=== PATIENT | male | born 1935 | race Caucasian/White ===

== ENCOUNTER 2017-08-18 10:47 | Inpatient (IN) | payer MEDICARE ==
[~2017-08-18] VITALS: Ht 175.3 cm; Wt 72.1 kg
[2017-08-18 11:20] LABS: BASOPHILS % (AUTO) 0.2 % (0.0-5.0); EOSINOPHILS % (AUTO) 0.5 % (0.0-8.0); HEMATOCRIT 41.7 % (42-54); LYMPHOCYTES % (AUTO) 4.3 % (21.0-51.0); MEAN CORPUSCULAR HEMOGLOBIN 31.5 pg (27.0-33.0); MEAN CORPUSCULAR HGB CONC 34.5 g/dL (32.0-36.0); MEAN CORPUSCULAR VOLUME 91.3 fL (79-99); MONOCYTES % (AUTO) 7.3 % (3.0-13.0); NEUTROPHILS % (AUTO) 87.7 % (40.0-77.0); PLATELET COUNT (AUTO) 283 K/uL (130-400); RED BLOOD CELL COUNT(AUTO) 4.57 MIL/uL (4.50-6.20); RED CELL DISTRIBUTION WIDTH 13.4 % (11.0-15.5); WHITE BLOOD COUNT (AUTO) 12.5 K/uL (4.8-10.8)
[2017-08-18 11:36] LABS: INR 1.03 (0.85-1.15); PARTIAL THROMBOPLASTIN TIME 33.7 SEC (26.3-35.5); PROTHROMBIN TIME 10.8 SEC (9.6-11.6)
[2017-08-18 11:50] LABS: ALBUMIN 2.5 g/dL (3.5-5.0); CREATINE KINASE MB 3.9 ng/mL (0.5-3.6); TOTAL PROTEIN, SERUM 7.7 g/dL (6.0-8.3)
[2017-08-18 12:49] LABS: CREATININE 1.8 mg/dL (0.5-1.5)
[2017-08-18] MEDS ORDERED: AZITHROMYCIN 250 MG TABLET PO ONE (15:00)
[2017-08-18] MEDS ORDERED: CEFTRIAXONE SODIUM 1 GM ONE (15:00)
[2017-08-18] MEDS ORDERED: ACETAMINOPHEN 325 MG TAB PO PRN (16:30)
[2017-08-18] MEDS ORDERED: ZOSYN 3.375GM+NS 50ML 50 ML IV ONE (17:37)
[2017-08-18] MEDS: IPRATROPIUM/ALBUTEROL SULFATE 3 ML SOLUTION IH SCH (19:14)
[2017-08-18 22:00] VITALS: BP 114/54
[2017-08-19] VITALS: BP 102/64
[2017-08-19] MEDS: IPRATROPIUM/ALBUTEROL SULFATE 3 ML SOLUTION IH SCH ×5 (00:31→23:43)
[2017-08-19 04:00] VITALS: BP 98/58
[2017-08-19 08:00] VITALS: BP 113/56
[2017-08-19] MEDS: CEFTRIAXONE SODIUM 1 GM IVP SCH (08:52)
[2017-08-19] MEDS: AZITHROMYCIN 500MG+NS 250ML 250 ML IV SCH (08:53)
[2017-08-19 11:00] VITALS: BP 112/51
[2017-08-19 16:00] VITALS: BP 118/61
[2017-08-19] MEDS ORDERED: AMLO5TAB2 PO (16:18)
[2017-08-19] MEDS ORDERED: LOVA40TA2 PO (16:18)
[2017-08-19 20:00] VITALS: BP 126/60
[2017-08-20] VITALS: BP 106/60
[2017-08-20 04:00] VITALS: BP 102/56
[2017-08-20 05:37] LABS: BASOPHILS % (AUTO) 0.7 % (0.0-5.0); EOSINOPHILS % (AUTO) 0.9 % (0.0-8.0); HEMATOCRIT 33.2 % (42-54); LYMPHOCYTES % (AUTO) 6.4 % (21.0-51.0); MEAN CORPUSCULAR HEMOGLOBIN 31.9 pg (27.0-33.0); MEAN CORPUSCULAR HGB CONC 34.8 g/dL (32.0-36.0); MEAN CORPUSCULAR VOLUME 91.6 fL (79-99); MONOCYTES % (AUTO) 9.5 % (3.0-13.0); NEUTROPHILS % (AUTO) 82.5 % (40.0-77.0); PLATELET COUNT (AUTO) 301 K/uL (130-400); RED BLOOD CELL COUNT(AUTO) 3.63 MIL/uL (4.50-6.20); RED CELL DISTRIBUTION WIDTH 13.3 % (11.0-15.5); WHITE BLOOD COUNT (AUTO) 8.5 K/uL (4.8-10.8)
[2017-08-20 05:44] LABS: CREATININE 1.4 mg/dL (0.5-1.5); POTASSIUM 3.8 mmol/L (3.5-5.1)
[2017-08-20] MEDS: IPRATROPIUM/ALBUTEROL SULFATE 3 ML SOLUTION IH SCH ×2 (06:42→12:16)
[2017-08-20 08:00] VITALS: BP 108/57
[2017-08-20] MEDS ORDERED: AMLODIPINE BESYLATE 5 MG TAB PO SCH (09:00)
[2017-08-20] MEDS: AZITHROMYCIN 500MG+NS 250ML 250 ML IV SCH (12:55)
[2017-08-20] MEDS: CEFTRIAXONE SODIUM 1 GM IVP SCH (12:56)
[2017-08-20] MEDS ORDERED: ATORVASTATIN CALCIUM 20 MG TABLET PO SCH (17:00)
== END 2017-08-20 17:55 | disposition home or self-care (01) | DRG 194 ==
LOC: EDH 10:47 → EDHIP 15:40 → 3BH 21:21
PROVIDERS: ADMIT Family Medicine; ATTEND Family Medicine
DX: J18.9 Pneumonia, unspecified organism (principal); N17.9 Acute kidney failure, unspecified; R09.02 Hypoxemia; I10 Essential (primary) hypertension; E78.5 Hyperlipidemia, unspecified; R00.0 Tachycardia, unspecified
CPT/HCPCS: 36415; 71045; 71250; 80048; 80053; 82550; 82553; 83874; 84484; 85025; 85610; 85730; 93005; 94640; 94664; A4218; J0456; J0696; J2543

== ENCOUNTER 2022-04-10 07:57 | Observation (INO) | payer OTHER, MEDICARE ==
[~2022-04-10] VITALS: Ht 172.7 cm; Wt 57.6 kg
[~2022-04-10 07:57] MED LIST: AMLO-257 PO; LOVA40TA2 PO
[2022-04-10 08:43] LABS: BASOPHILS % (AUTO) 1.1 % (0.0-5.0); EOSINOPHILS % (AUTO) 2.2 % (0.0-8.0); HEMATOCRIT 41.4 % (42-54); LYMPHOCYTES % (AUTO) 21.1 % (21.0-51.0); MEAN CORPUSCULAR HEMOGLOBIN 30.8 pg (27.0-33.0); MEAN CORPUSCULAR HGB CONC 32.9 g/dL (32.0-36.0); MEAN CORPUSCULAR VOLUME 93.9 fL (79-99); MONOCYTES % (AUTO) 8.3 % (3.0-13.0); NEUTROPHILS % (AUTO) 67.3 % (40.0-77.0); PLATELET COUNT (AUTO) 242 K/uL (130-400); RED BLOOD CELL COUNT(AUTO) 4.41 MIL/uL (4.50-6.20); RED CELL DISTRIBUTION WIDTH 12.8 % (11.0-15.5); WHITE BLOOD COUNT (AUTO) 3.6 K/uL (4.8-10.8)
[2022-04-10 08:54] LABS: CREATININE 1.1 mg/dL (0.5-1.5); POTASSIUM 4.2 mmol/L (3.5-5.1)
[2022-04-10 08:58] LABS: ALBUMIN 3.3 g/dL (3.5-5.0); TOTAL PROTEIN, SERUM 6.9 g/dL (6.0-8.3)
[2022-04-10 10:20] LABS: APPEARANCE,URINE CLEAR (CLEAR); BILIRUBIN,URINE NEGATIVE (NEGATIVE); COLOR,URINE LIGHT-YELLOW (YELLOW); GLUCOSE, URINE (UA) NEGATIVE (NEGATIVE); KETONES,URINE NEGATIVE (NEGATIVE); LEUKOCYTE ESTERASE ,URINE NEGATIVE Leu/uL (NEGATIVE); NITRATE,URINE NEGATIVE (NEGATIVE); OCCULT BLOOD,URINE NEGATIVE (NEGATIVE); PROTEIN,URINE NEGATIVE (NEGATIVE); UROBILINOGEN,URINE 0.2 mg/dL (0.2-1.0)
[2022-04-10 11:00] LABS: MUCUS,URINE RARE LPF (None Seen); RBC,URINE 0-1 /HPF (0-1); SQUAMOUS EPITHELIAL CELL,UR RARE /HPF (0-2)
[2022-04-10] MEDS ORDERED: 0.9% NACL 500ML IV.SOLN 500 ML IV SCH (11:00)
[2022-04-10] MEDS ORDERED: MAGNESIUM 2GM PREMIX 50ML 50 ML IV PRN (11:30)
[2022-04-10] MEDS ORDERED: MORPHINE 4 MG SYG IV PRN (11:30)
[2022-04-10] MEDS ORDERED: GUAIFENESIN-DM 200/20 MG 10 ML PO PRN (11:30)
[2022-04-10] MEDS ORDERED: MAG/ALUM/SIMETH 30 ML UDCUP PO PRN (11:30)
[2022-04-10] MEDS ORDERED: AMIODARONE 900MG VIAL 360 MG in DEXTROSE 5%-WATER 200 ML IV SCH (11:30)
[2022-04-10] MEDS ORDERED: ONDANSETRON 4MG INJ IV PRN (11:30)
[2022-04-10] MEDS ORDERED: LACTULOSE 20 GM/30 ML UDCUP PO PRN (11:30)
[2022-04-10] MEDS ORDERED: POTASSIUM CHLORIDE 20MEQ/100ML 100 ML IV PRN (11:30)
[2022-04-10] MEDS ORDERED: ACETAMINOPHEN 325 MG TAB PO PRN ×2 (11:30)
[2022-04-10] MEDS ORDERED: DIPHENHYDRAMINE HCL 25 MG CAPSULE PO PRN (11:30)
[2022-04-10] MEDS ORDERED: METOPROLOL TARTRATE 1 MG/ML 5ML VIAL IV ONE ×2 (11:30→12:00)
[2022-04-10] MEDS ORDERED: POTASSIUM CHLORIDE 10% ELIXIR 20 MEQ/15 ML UDCUP PO PRN (11:30)
[2022-04-10] MEDS ORDERED: AMIODARONE 900MG VIAL 540 MG in DEXTROSE 5%-WATER 300 ML IV SCH ×2 (11:30→19:30)
[2022-04-10] MEDS ORDERED: DiphenhydrAMINE HCL 50 MG/ML VIAL IV PRN (11:30)
[2022-04-10] MEDS ORDERED: AMIODARONE 900MG VIAL 150 MG in DEXTROSE 5%-WATER 100 ML IV PRN (11:30)
[2022-04-10] MEDS ORDERED: NITROGLYCERIN 0.4 MG SL TAB SL PRN (11:30)
[2022-04-10] MEDS ORDERED: LIDOCAINE HCL-MPF 1% 2ML VIAL IV PRN (11:30)
[2022-04-10] MEDS ORDERED: HYDROCODONE/ACETAMINOPHEN 5/325 MG TAB PO PRN (11:30)
[2022-04-10] MEDS ORDERED: HYDROMORPHONE 1 MG INJ IV PRN (11:30)
[2022-04-10] MEDS ORDERED: LACTATED RINGERS 1000ML IV SCH (14:15)
[2022-04-10 15:40] VITALS: BP_SYST 106; BP_SYST 110; BP_SYST 116; BP_DIAS 53; BP_DIAS 59; BP_DIAS 71
[2022-04-10 19:30] VITALS: BP_SYST 111; BP_SYST 114; BP_DIAS 60; BP_DIAS 65
[2022-04-10 19:32] VITALS: BP 114/65
[2022-04-10 19:34] VITALS: BP 110/60
[2022-04-10] MEDS: FAMOTIDINE 20MG TAB PO SCH (20:39)
[2022-04-10] MEDS: APIXABAN 2.5 MG TABLET PO SCH (20:39)
[2022-04-10] MEDS: FAMOTIDINE 20MG VIAL IV SCH (21:00)
[2022-04-11] VITALS: BP_SYST 107; BP_SYST 108; BP_SYST 112; BP_DIAS 56; BP_DIAS 59; BP_DIAS 66
[2022-04-11 04:00] VITALS: BP_SYST 113; BP_SYST 114; BP_SYST 95; BP_DIAS 41; BP_DIAS 53; BP_DIAS 58
[2022-04-11 04:00] LABS: BASOPHILS % (AUTO) 0.9 % (0.0-5.0); EOSINOPHILS % (AUTO) 2.1 % (0.0-8.0); HEMATOCRIT 35.4 % (42-54); LYMPHOCYTES % (AUTO) 17.5 % (21.0-51.0); MEAN CORPUSCULAR HEMOGLOBIN 31.1 pg (27.0-33.0); MEAN CORPUSCULAR HGB CONC 33.6 g/dL (32.0-36.0); MEAN CORPUSCULAR VOLUME 92.4 fL (79-99); MONOCYTES % (AUTO) 11.3 % (3.0-13.0); PLATELET COUNT (AUTO) 231 K/uL (130-400); RED BLOOD CELL COUNT(AUTO) 3.83 MIL/uL (4.50-6.20); RED CELL DISTRIBUTION WIDTH 12.9 % (11.0-15.5); WHITE BLOOD COUNT (AUTO) 5.3 K/uL (4.8-10.8)
[2022-04-11 04:09] LABS: CREATININE 1.2 mg/dL (0.5-1.5); MAGNESIUM 1.7 mg/dL (1.80-2.40); PHOSPHORUS 3.1 mg/dL (2.5-4.9); POTASSIUM 3.7 mmol/L (3.5-5.1)
[2022-04-11] MEDS: KCL 20 MEQ ERTAB PO PRN ×2 (04:56→09:05)
[2022-04-11 06:45] VITALS: BP 103/59
[2022-04-11 06:46] VITALS: BP 101/57
[2022-04-11 06:47] VITALS: BP 112/62
[2022-04-11] MEDS: FAMOTIDINE 20MG VIAL IV SCH (07:55)
[2022-04-11] MEDS ORDERED: ENOXAPARIN SODIUM 40 MG/0.4 ML SYRINGE SQ SCH (09:00)
[2022-04-11] MEDS: FAMOTIDINE 20MG TAB PO SCH (09:04)
[2022-04-11] MEDS: APIXABAN 2.5 MG TABLET PO SCH (09:04)
[2022-04-11] MEDS ORDERED: BETH25 PO (10:29)
[2022-04-11] MEDS ORDERED: DONE10TA43 PO (10:29)
[2022-04-11] MEDS ORDERED: LOSA50TA64 PO (10:29)
[2022-04-11] MEDS ORDERED: APIX2.5T PO (11:04)
== END 2022-04-11 12:14 | disposition home or self-care (01) ==
LOC: EDH 07:57 → EDHIP 11:26 → 2DH 16:45
PROVIDERS: ADMIT Internal Medicine; ATTEND Internal Medicine
DX: I48.20 Chronic atrial fibrillation, unspecified (principal); I10 Essential (primary) hypertension; G30.9 Alzheimer's disease, unspecified; F02.80 Dementia in other diseases classified elsewhere, unspecified severity, without behavioral disturbance, psychotic disturbance, mood disturbance, and anxiety; N40.1 Benign prostatic hyperplasia with lower urinary tract symptoms; R33.8 Other retention of urine; Z79.01 Long term (current) use of anticoagulants; Z92.3 Personal history of irradiation; Z85.46 Personal history of malignant neoplasm of prostate; Z79.899 Other long term (current) drug therapy
CPT/HCPCS: 96361; 96365; 96366 ×2; 96375; 83735 ×2; 84484; 80053; 83880; 85025 ×2; 85378; 87088; 81001; 36415 ×2; 71045; 70450; 99291; 93005; 96367; 84100; 80048; 93306; 93356; G0378 ×23; J7040; J3490 ×2; J7060; J0282; J3475

== ENCOUNTER → 2022-06-20 | Outpatient (CLI) | payer MEDICARE, OTHER ==
[~2022-06-20] MED LIST changes: -AMLO-257 PO; +APIX2.5T PO; +BETH25 PO; +DONE10TA43 PO; +LOSA50TA64 PO; -LOVA40TA2 PO
[2022-06-20 16:17] LABS: BASOPHILS % (AUTO) 1.2 % (0.0-5.0); EOSINOPHILS % (AUTO) 2.2 % (0.0-8.0); HEMATOCRIT 41.1 % (42-54); LYMPHOCYTES % (AUTO) 21.1 % (21.0-51.0); MEAN CORPUSCULAR HEMOGLOBIN 30.6 pg (27.0-33.0); MEAN CORPUSCULAR HGB CONC 32.4 g/dL (32.0-36.0); MEAN CORPUSCULAR VOLUME 94.7 fL (79-99); MONOCYTES % (AUTO) 10.7 % (3.0-13.0); NEUTROPHILS % (AUTO) 64.8 % (40.0-77.0); PLATELET COUNT (AUTO) 195 K/uL (130-400); RED BLOOD CELL COUNT(AUTO) 4.34 MIL/uL (4.50-6.20); RED CELL DISTRIBUTION WIDTH 14.6 % (11.0-15.5); WHITE BLOOD COUNT (AUTO) 4.1 K/uL (4.8-10.8)
[2022-06-20 16:39] LABS: ALBUMIN 3.6 g/dL (3.5-5.0); CREATININE 1.2 mg/dL (0.5-1.5); POTASSIUM 4.1 mmol/L (3.5-5.1); TOTAL PROTEIN, SERUM 6.8 g/dL (6.0-8.3)
== END | disposition home or self-care (01) ==
LOC: LAB 11:52
PROVIDERS: ATTEND Internal Medicine Cardiovascular Disease
DX: I48.0 Paroxysmal atrial fibrillation (principal); Z79.01 Long term (current) use of anticoagulants
CPT/HCPCS: 36415; 80053; 85025